=== PATIENT | male | born 1955 | race Caucasian/White ===

== ENCOUNTER 2017-03-17 16:04 | Emergency (ER) | payer OTHER ==
[~2017-03-17 16:04] MED LIST: ALLOPURINOL300 MG PO; AMLODIPINE PO; BENADRYL25 MG PO; CELEXA40 M1 PO; CIPRO DPS500 MG PO; KLONOPIN0.5 MG PO; MAALOX PO; NITROSTAT0.4 MG SL; NORCO 5-325 TA1 EACH PO; PYRIDIUM200 MG PO; RISPERDAL1 MG PO; SURFAK240 MG PO; TYLENOL PO
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
== END 2017-03-17 17:35 | disposition home or self-care (01) ==
LOC: ER 16:04
DX: S20.211A Contusion of right front wall of thorax, initial encounter (principal); I10 Essential (primary) hypertension; F41.9 Anxiety disorder, unspecified; Z87.442 Personal history of urinary calculi; Z79.899 Other long term (current) drug therapy; Z98.890 Other specified postprocedural states; V49.49XA Driver injured in collision with other motor vehicles in traffic accident, initial encounter